=== PATIENT | male | born 1985 | race African-American/Black ===

== ENCOUNTER 2019-08-02 22:04 | Emergency (ER) | payer OTHER ==
[~2019-08-02] VITALS: Ht 180.3 cm; Wt 90.7 kg
[2019-08-02] MEDS ORDERED: NORVASC5 M1 PO (23:02)
[2019-08-02 23:14] VITALS: BP 197/119
== END 2019-08-02 23:21 | disposition home or self-care (01) ==
LOC: ER 22:04
DX: U07.1 COVID-19 (principal); I10 Essential (primary) hypertension